=== PATIENT | male | born 1940 | race Caucasian/White ===

== ENCOUNTER → 2024-08-16 13:36 | Outpatient (REF) | payer MEDICARE, OTHER, SELFPAY | LOC: RAD 13:36 | PROVIDERS: ATTENDING PHYSICIAN Student in an Organized Health Care Education/Training Program; FAMILY PHYSICIAN Family Medicine; OTHER PHYSICIAN Internal Medicine Cardiovascular Disease | DX: I48.20 Chronic atrial fibrillation, unspecified (principal) | CPT/HCPCS: 75572; Q9967 ==

== ENCOUNTER → 2024-10-15 15:27 | Outpatient (REF) | payer MEDICARE, OTHER, SELFPAY | LOC: RAD 15:27 | PROVIDERS: ATTENDING PHYSICIAN Student in an Organized Health Care Education/Training Program; FAMILY PHYSICIAN Family Medicine | DX: I48.21 Permanent atrial fibrillation (principal) | CPT/HCPCS: 75572; Q9967 ==

== ENCOUNTER → 2024-10-21 15:02 | Outpatient (REF) | payer MEDICARE, OTHER, SELFPAY ==
[2024-10-21 15:57] LABS: INR 2.37; PT 25.9 Sec (11.4-14.6)
[2024-10-21 16:18] LABS: ALT (SGPT) 22 U/L (0-50); AST (SGOT) 26 U/L (17-59); Albumin 4.2 g/dl (3.5-5.0); Alkaline Phosphatase 73 U/L (38-126); Blood Urea Nitrogen 20 mg/dl (9-20); Calcium 9.3 mg/dl (8.4-10.2); Carbon Dioxide 27 mmol/L (22-30); Chloride 107 mmol/L (98-107); Glucose 109 mg/dl (70-99); Potassium 4.1 mmol/L (3.5-5.1); Sodium 142 mmol/L (135-145); Total Bilirubin 0.7 mg/dl (0.2-1.3); Total Protein 7.2 g/dl (6.3-8.2); eGFR > 60.00
== END ==
LOC: REG 15:02
PROVIDERS: ATTENDING PHYSICIAN Student in an Organized Health Care Education/Training Program
DX: I48.19 Other persistent atrial fibrillation (principal); I10 Essential (primary) hypertension; I63.9 Cerebral infarction, unspecified; R06.02 Shortness of breath
CPT/HCPCS: 36415; 80053; 85610

== ENCOUNTER 2025-01-22 07:28 | Day surgery (SDC) | payer MEDICARE, OTHER, SELFPAY ==
[2025-01-22 08:18] VITALS: BMI 33.1
[2025-01-22 08:32] LABS: INR 2.06; PT 23.7 Sec (11.4-14.6)
== END 2025-01-22 08:18 | disposition home or self-care (01) ==
LOC: CATH 07:28
PROVIDERS: ATTENDING PHYSICIAN Student in an Organized Health Care Education/Training Program; FAMILY PHYSICIAN Family Medicine; OTHER PHYSICIAN Internal Medicine Cardiovascular Disease
DX: I48.20 Chronic atrial fibrillation, unspecified (principal); E78.5 Hyperlipidemia, unspecified; I10 Essential (primary) hypertension; I08.3 Combined rheumatic disorders of mitral, aortic and tricuspid valves; I70.0 Atherosclerosis of aorta
CPT/HCPCS: 93312; 93325; 93320; 85610

== ENCOUNTER 2025-02-25 08:51 | Inpatient (IN) | payer MEDICARE, OTHER, SELFPAY ==
[2025-02-20 13:24] VITALS: BMI 32.1
[2025-02-20 13:32] LABS: Hematocrit 41.1 % (39.0-52.0); Hemoglobin 14.1 g/dL (13.0-18.0); Mean Corp Hgb Conc. 34.3 g/dL (33.0-37.0); Mean Corpuscular Volume 93.4 fL (80.0-94.0); Nucleated Red Blood Cells % 0 % (-); Platelet Count 216 10^3/uL (130-400); Red Cell Dist. Width 12.9 % (11.5-14.5)
[2025-02-20 13:42] LABS: INR 1.78; PT 21.2 Sec (11.4-14.6)
[2025-02-20 14:27] LABS: ALT (SGPT) 35 U/L (0-50); AST (SGOT) 29 U/L (17-59); Albumin 4.3 g/dl (3.5-5.0); Alkaline Phosphatase 84 U/L (38-126); Blood Urea Nitrogen 18 mg/dl (9-20); Calcium 9.4 mg/dl (8.4-10.2); Carbon Dioxide 30 mmol/L (22-30); Chloride 103 mmol/L (98-107); Estimated Creatinine Clearance 73 ml/min; Glucose 123 mg/dl (70-99); Potassium 4.6 mmol/L (3.5-5.1); Sodium 138 mmol/L (135-145); Total Protein 7.5 g/dl (6.3-8.2); eGFR > 60.00
[2025-02-25] VITALS (19 sets, daily range): BP systolic 117–166; BP diastolic 66–94; BMI 31.9
[2025-02-25 09:50] LABS: Glucose - Point of Care 135 mg/dl (70-99)
[2025-02-25 10:13] LABS: INR 1.10; PT 14.5 Sec (11.4-14.6)
[2025-02-25 11:49] LABS: ACT-LR - POC 240 Seconds (116-155)
[2025-02-25 11:49] LABS: ACT-LR - POC 285 Seconds (116-155)
[2025-02-25 12:04] LABS: ACT-LR - POC 255 Seconds (116-155)
[2025-02-25 12:24] LABS: ACT-LR - POC 324 Seconds (116-155)
--- NOTE | 2025-02-25 12:33 | WATCHMAN.MD ---
Watchman Implant
-
Watchman BRIANNA occlusion device implantation:
Mr. Brasher is an 84 yrs old gentleman with history of stroke and persistent atrial fibrillation status post convergent PVI. Patient was noted to have left atrial appendage clot in July 2024 for the evaluation of watchman plantation for his high
risk of bleeding. Patient's anticoagulation therapy had been switched from Eliquis to Pradaxa to warfarin without resolution of the left atrial appendage clot which was thought to be laminated. With his persistent clot and high risk of bleeding, and
inability to to resolve left leg appendage clot, patient was advised to undergo high risk watchman with deployment of [place] device for stroke prevention.
Date of Procedure:
02/25/25
Indications:
Recurrent bleeding with anticoagulation therapy for stroke prevention
Pre-Operative Diagnosis:
Atrial fibrillation with recurrent bleeding
Post-Operative Diagnosis:
Atrial fibrillation with recurrent bleeding
Procedure Performed:
Left atrial appendage occlusion with Watchman implantation (35 mm Watchman FLX Pro left atrial appendage closure device)
[place] device deployment
Performing Physicians:
JAGDISH: Christian Hightower MD.
Transseptal calender machine operator: Karla Gonzalez MD.
Implanter: Christopher Kaye MD
Anesthesia:
See anesthesia records
Detailed Description of the Procedure:
Written informed consent was obtained from the patient after a full explanation of the risks and benefits of the procedure including the risks of sedation and anesthesia.
The patient was brought to the electrophysiology laboratory in stable condition in fasting state. Continuous electrocardiographic and hemodynamic monitoring was initiated.
The initial rhythm was atrial fibrillation.
The procedure site was meticulously prepared with surgical scrub and allowed to dry with no pooling. Sterile draping was applied to cover the procedure site. The image intensifier was draped with sterile bag and positioned over the patient. After
infusion of local anesthetic, vascular access was obtained under ultrasound guidance and sheaths were placed over guide wire as detailed below.
Sheath and Catheter Placement:
In the right femoral vein, an 8-Macanese sheath was placed for Watchman placement procedure.
Sheaths:
Watchman delivery sheath upgraded from 8Fr sheath in right femoral vein
6 Macanese in right radial artery
Catheters:
Watchman catheter
[place] device sheath
[place] device deployment:
Heparin bolus was given and drip was started. ACT was confirmed to be more than 250 before starting the centerline device deployment. Heparin was initiated and infused to maintain appropriate ACT.
[place] device was deployed over the guidewire into the right radial to right carotid artery. [place] device was deployed initially deploying in the right brachiocephalic trunk artery and then engaging the left carotid artery deploying the second
basket in the left carotid artery.
Once adequate expansion of the both baskets were confirmed, patient device was locked and stored in the side.
Attention was then given for watchman implantation.
Trans-septal Puncture:
A VersaCross RF pigtail guidewire was advanced through the 8-Macanese sheath in the right femoral vein into the superior vena cava under fluoroscopic, JAGDISH guidance. The 8Fr was upgraded the Watchman sheath and was advanced into the superior vena cava
over the guide wire. A transseptal VersaCross RF pigtail via Faradrive connect system was utilized to perform the trans-septal puncture. The apparatus was withdrawn until it was in contact with the fossa ovalis. The position was adjusted based on
fluoroscopy and ultrasound images from JAGDISH. Under fluoroscopic, hemodynamic and JAGDISH ultrasound guidance, left atrium was cannulated by applying the radiofrequency energy. The right atrial and left atrial pressure was monitored. A guide wire was
placed and was advanced into the left superior pulmonary vein. Both the sheath and the dilator was advanced into the left atrium. The dilator was withdrawn. Blood was aspirated from the sheath and arterial blood confirmed. The sheath was flushed.
Saline injection noted into the left atrium on JAGDISH. The LA pressure was recorded. The saline injection was noted in the LA on the JAGDISH. A curved pig tail was advanced over the guide wire into the left atrium and the wire was removed.
Left atrial appendage atriography:
The BRIANNA was imaged and waas noted to have significant spontaneous contrast and hx of BRIANNA clot, the decision was made to record the location of the BRIANNA with fluoroscopy and JAGDISH and decision was made not to proceed with appendagography and contrast
was not injected into the BRIANNA.
The size of the BRIANNA was again checked and confirmed reviewing the JAGDISH and the fluoroscopy along with previously obtained CT scan images.
Watchman Deployment:
The Watchman delivery sheath was advanced into the BRIANNA over the guidewire till the right marker was at the location of the orifice line marked on the screen. The guidewire was removed and the Watchman delivery system was advanced through the sheath
into the BRIANNA till it was aligned with the outer sheath marker inside the BRIANNA. The watchman sheath was clicked with the outer sheath. Once acceptable location achieved, the outer sheath was pulled back keeping the device steady at the BRIANNA location
till a ball of the device was formed under fluoroscopic guidance. The whole system was advanced further into the BRIANNA till adequate depth is achieved into the BRIANNA. The BRIANNA occluder was deployed and expanded adequately anchoring to the BRIANNA. The
device was kept anchored with stable pressure to that location for 10 seconds.
The watchman needed to be recaptured and adjusted and was redeployed till the adequate expansion and occlusion of the BRIANNA noted.
The JAGDISH image confirmed adequate expansion. The tug test was done that showed the device is anchored well and is not able to come out. The compression was 15% to 28% on the three sides. There was no significant leak noted on the Doppler via JAGDISH.
The device was deployed by unscrewing the Watchman device and releasing from the connecting wire. The wire was pulled back into the sheath and the sheath was pulled out of the LA.
Implanted device:
WATCHMAN FLX Pro � 35mm
Procedure End
JAGDISH study was done again that showed no epicardial accumulation that was unchanged from earlier. A repeated images showed no change in the pericardial space. No complications noted.
Following the completion of the deployment, catheters were removed. The sheath was removed and hemostasis achieved with figure of 8 suture and manual compression after acceptable ACT is achieved.
Left atrial Pressure:
Mean LA pressure was 17mmHg
Estimated Blood loss:
10 cc
Specimens Removed:
None.
Implants / Devices:
None
Urine output:
None
Packs / Drains/ Tubes:
None
Instrument / Sponge Count Correct:
Yes
Complications of the Procedure:
None
Condition of Patient at Time of Transfer:
Hemodynamically stable with no neurological or vascular compromise.
Summary:
Successful implantation of the left atrial occlusion device (WATCHMAN FLX Pro� 35mm)
Post procedure Plan for anticoagulation:
Restart Eliquis 5 mg BID for 3 months.
Following 3 months JAGDISH, continue ASA 81 mg indefinitely.
[2025-02-25 13:39] LABS: Glucose - Point of Care 142 mg/dl (70-99)
--- NOTE | 2025-02-25 14:05 | PTCARENOTE ---
received patient from cathode maker s/p ,watchman, right radial has R band, intact, distal pulse palpable, right fem. vein figure 8 intact, dsg. D/I, distal pulse palpable. monitor shows Afib, VSS. lung dorantes clear on RA , o2 sat 96%. INT in right hand,
flushes well. oriented to room and surroundings, demonstrated how to use call guajardo.
--- NOTE | 2025-02-25 16:27 | PTCARENOTE ---
time to take R band off, started to bleed and hematoma, applied pressure and R band back on with 3cc of air. right fem. vein, figure 8 suture removed, dsg. placed, D/I.
[2025-02-25] MEDS: LOW STRENGTH ASPIRIN 81 MG PO (17:45)
--- NOTE | 2025-02-25 18:29 | PTCARENOTE ---
R band off, right groin dsg. D/I, patient sitting on side of bed eating dinner.
[2025-02-25] MEDS: ANESTHETIC LOZENGE 1 LOZENGE PO (19:49)
[2025-02-25] MEDS: ELIQUIS 5 MG PO (19:49)
[2025-02-25] MEDS: AVAPRO 150 MG PO (19:50)
[2025-02-25] MEDS: ORETIC 12.5 MG PO (19:50)
--- NOTE | 2025-02-25 19:55 | ITS.CL.PN ---
[facility] - Procedure Note
Procedure
Procedure Note:
WATCHMAN LEFT ATRIAL APPENDAGE OCCLUSION REPORT
Date of Procedure: 02/25/25
Referring: Dr. Femi Camejo MD
Indication: Atrial fibrillation with high bleeding risk and high stroke risk
Operators: Christopher Kaye MD, PhD (interventional cardiology); Dr. Karla Gonzalez MD (electrophysiology); Dr. Stef Hightower MD (cardiac imaging)
Anesthesia: general anesthesia provided by the anesthesia staff
After failure to clear left atrial appendage thrombus despite three separate anticoagulants, we had a Heart Team discussion involving the patient, referring farm mechanic, and Watchman team to discuss management options. It was felt that given the
laminated nature of the thrombus, LAAO with Watchman could be achieved with minimal procedural stroke risk. Given the significant concern for stroke risk without anticoagulation (especially in the setting of prior CVA when taken off anticoagulation)
as well as the significant risks of severe bleeding in the setting of the patient's ongoing falls with anticoagulation, we felt that LAAO despite presence of BRIANNA clot was the best option. To minimize potential of dislodgement of the BRIANNA thrombus, we
chose proceed with placement of Altha cerebral embolic protection and 'no touch' technique with no dye injection in the appendage and minimal interaction of the sheath and device with the appendage prior to deployment.
PROCEDURES:
1. angiography, cervicocerebral
2. cerebral embolic protection filter placement
3. left atrial appendage occlusion with a 35 mm Watchman FLX
ACCESS:
1. 14F right common femoral vein (closure: figure of eight stitch) - Ultrasound was utilized for vascular access. The vessel was visualized under ultrasound and noted to be patent. An image of the vessel was stored permanently in the patient's
medical record. Under direct ultrasound guidance, vascular access was obtained using a modified Seldinger technique and a 8 Welsh sheath was placed.
2. 6F right radial artery (closure: TR band) - Ultrasound was utilized for vascular access. The vessel was visualized under ultrasound and noted to be patent. An image of the vessel was stored permanently in the patient's medical record. Under
direct ultrasound guidance, vascular access was obtained using a modified Seldinger technique and a 6 Welsh sheath was placed.
PROCEDURE NARRATIVE:
The patient was intubated and sedated by anesthesiology and then prepped and draped in standard sterile fashion. A JAGDISH probe was placed by cardiology and imaging performed demonstrating known left atrial appendage thrombus and no pericardial
effusion. Under ultrasound guidance, the right femoral vein was accessed with an 8F sheath placed. Right radial access was then obtained under ultrasound guidance and a 6F sheath placed. Via the right radial access, a 6 Welsh pigtail catheter was
used to perform cervicocerebral aortography which demonstrated patent great vessels amenable to Altha placement. Heparin was administered to achieve ACT>300. The Altha cerebral embolic protection device was then placed via the right radial
artery under fluoroscopic guidance.
The 8F sheath was exchanged over a DubMeNow RF wire for the Watchman TrueSteer sheath which was advanced to the SVC. The Watchman sheath was then pulled back under fluoroscopic and echo guidance until an appropriate inferior and posterior position on
the septum was achieved. During brief RF application, the wire was advanced through the interatrial septum into the left atrium. The wire was placed in the left upper pulmonary vein as confirmed by fluoroscopy and JAGDISH. The dilator and sheath easily
tracked across the septum allowing placement of the sheath in the left atrium. Left atrial pressure was measured at 17 mmHg.
The device was prepped on the back table, the pigtail catheter removed, and the device delivered via the sheath to the left atrial appendage by Dr. Abdirahman Kaye with care taken to perform as little manipulation in the appendage as possible. The
device was deployed slowly under continuous fluoroscopic and JAGDISH visualization. After deployment, JAGDISH imaging was performed to assess PASS criteria. The device demonstrated excellent positioning, anchor stability on tug test, appropriate sizing with
15-28% compression, and appropriate seal with no leak at 0, 45, 90, or 135 degrees. Given PASS criteria were met, the device was then released.
The delivery system retracted back into the sheath and removed from the body. The sheath was retracted into the right atrium with JAGDISH demonstrating no significant R-L shunt or pericardial effusion. The Altha cerebral embolic protection device was
recaptured and removed from the radial sheath. The femoral sheath were removed and the venotomy closed with [id number] knot. The radial site was closed with a TR band. the patient was extubated and tolerated the procedure well with normal
neurologic exam immediately postprocedure.
CONCLUSIONS
1. transseptal puncture with JAGDISH guidance
2. successful deployment of a 35 mm Watchman FLX device under fluoroscopic and JAGDISH guidance with Altha cerebral embolic projection
RECOMMENDATIONS:
1. anticoagulation with apixaban 5 mg BID for 3 months
2. repeat JAGDISH in 3 months
Copy to: Dr. Femi Camejo MD (farm mechanic); Dr. Yong Gabriel DO (PCP)
Signed: Christopher Kaye MD, PhD
[2025-02-25] MEDS: TOPROL XL 50 MG PO (22:09)
[2025-02-25] MEDS: CRESTOR 5 MG PO (22:09)
--- NOTE | 2025-02-25 22:40 | PTCARENOTE ---
Received pt @ change of shift. AAOx3, VSS-- A-fib on monitor. Right radial site ecchymotic, but clean, dry, and intact. Right groin site oozing a little-- marked to compare. Soft to touch, no ecchymosis or hard spots. Pt c/o tender throat-- lozenge
given-- see MAR. Discussed change in medication to Eliquis and care plan for night/morning. Pt verbalizes understanding. Call guajardo within reach.
[2025-02-26 02:08] VITALS: BP 138/90
[2025-02-26 02:34] LABS: Hematocrit 39.5 % (39.0-52.0); Hemoglobin 13.4 g/dL (13.0-18.0); Mean Corp Hgb Conc. 33.9 g/dL (33.0-37.0); Mean Corpuscular Volume 96.8 fL (80.0-94.0); Platelet Count 183 10^3/uL (130-400); Red Cell Dist. Width 13.0 % (11.5-14.5)
[2025-02-26 02:42] LABS: INR 1.23; PT 15.8 Sec (11.4-14.6)
[2025-02-26 02:57] LABS: Blood Urea Nitrogen 21 mg/dl (9-20); Calcium 9.0 mg/dl (8.4-10.2); Carbon Dioxide 27 mmol/L (22-30); Chloride 103 mmol/L (98-107); Estimated Creatinine Clearance 73 ml/min; Glucose 126 mg/dl (70-99); Potassium 4.6 mmol/L (3.5-5.1); Sodium 134 mmol/L (135-145); eGFR > 60.00
[2025-02-26 08:17] VITALS: BP 151/81
[2025-02-26] MEDS: AVAPRO 150 MG PO (08:17)
[2025-02-26] MEDS: ORETIC 12.5 MG PO (08:17)
[2025-02-26] MEDS: ELIQUIS 5 MG PO (08:17)
--- NOTE | 2025-02-26 10:13 | PTCARENOTE ---
Pt is AOx3, no complaints of pain or discomfort. Independent OOB. Right radial and Right groin site CDI. Afib on tele monitor, VSS. Plan for discharge later this AM. Call guajardo within reach.
--- NOTE | 2025-02-26 10:18 | W.PN.CARDCBS ---
Addendum entered and electronically signed by Franck Street MD 02/26/25 10:33:
Patient seen and examined in collaboration with [facility]; agree with below.
- Patient stable status-post watchman implantation yesterday.
- Changing from warfarin/Lovenox to Eliquis 5 mg BID.
- Follow-up JAGDISH in 3 months.
- Stable for discharge to home today.
Original Note:
Today's Communication / Plan
-
post Watchman
switch warfarin/Lovenox to apixaban
f/u JAGDISH in 3 mo
home today
Impression / Plan
-
PCP: Yong Gabriel DO
CDY: Femi Camejo MD
Impression:
Atrial fibrillation multiple ablations with chronic BRIANNA thrombus
post 35mm Watchman device implant with cerebral embolic protection 02/25/25
HTN
HLD
Ambulatory dysfunction with history of fall.
Colon cancer 1996, colectomy and chemo.
Asbestos exposure.
Degenerative disc disease with spinal stenosis.
Obstructive sleep apnea, noncompliant with device.
CVA 2017, left occipital, with hemorrhagic conversion and
residual right peripheral visual deficit.
Noninsulin-dependent, diet-controlled diabetes.
Plan:
post watchman, feels good
groin stable with some ecchymosis, soft
tele Afib
He was on Warfarin with Lovenox bridge, we will switch him to Eliquis 5mg bid for then next 3mo
f/u JAGDISH in 3 mo
continue metoprolol
Activity restrictions reviewed
f/u Dr. Camejo in 2 mo
home today
Progress Note - [facility] Program Coordinator
Subjective
Date of Service: February 26, 2025
denies cp, sob
Objective
Labs:
02/26/25 02:18
02/26/25 02:18
Labs
Hgb 13.4 g/dL (13.0-18.0) 02/26/25 02:18
Hct 39.5 % (39.0-52.0) 02/26/25 02:18
Plt Count 183 10^3/uL (130-400) 02/26/25 02:18
PT 15.8 Sec (11.4-14.6) H 02/26/25 02:18
INR 1.23 02/26/25 02:18
Sodium 134 mmol/L (135-145) L 02/26/25 02:18
Potassium 4.6 mmol/L (3.5-5.1) 02/26/25 02:18
BUN 21 mg/dl (9-20) H 02/26/25 02:18
Creatinine 0.9 mg/dL (0.7-1.3) 02/26/25 02:18
Glucose 126 mg/dl (70-99) H 02/26/25 02:18
Vital Signs and I&O:
Vital Signs
Temp Pulse Resp BP Pulse Ox
97.7 F 65 20 151/81 98
02/26/25 08:09 02/26/25 08:17 02/26/25 08:09 02/26/25 08:17 02/26/25 08:09
Vital Signs
Temp Pulse Resp BP Pulse Ox
97.7 F 65 20 151/81 98
02/26/25 08:09 02/26/25 08:17 02/26/25 08:09 02/26/25 08:17 02/26/25 08:09
Intake & Output
02/24/25 02/25/25 02/26/25 02/27/25
06:59 06:59 06:59 06:59
Intake Total 1080 / 1080
Output Total 600 / 600
Balance 480 / 480
Physical Exam
Physical Exam
NAD< AOX3
S1, S2, irreg irreg 1/ JOSE
CTAB, non labored, no wheeze
SNTND Bsx4
R fem site old marked drainage, mod ecchymosis, soft, no HT
[2025-02-26 11:08] VITALS: BP 129/66
--- NOTE | 2025-02-26 11:38 | CM ---
Chart reviewed. Patient is independent of ADLS, lives with his in a 2 [address], 1-2 SHAIN, 0 DME. Plan is for the patient to return home.
--- NOTE | 2025-02-26 12:53 | W.DS.TRANS ---
DC Summary - Inspector Process
-
Discharge Instructions:
Discharge Diagnosis/Procedures Watchman device implant
Diet Low Cholesterol
Driving Restrictions No driving for 24 hours
Others Tests 3 month follow up JAGDISH is scheduled for 05/28/2025.
You will receive instructions in the mail. The
day before your JAGDISH you will receive a call with
your arrival time.
Instructions:
Stand-Alone Forms: DC Instructions- Cath/EP Lab
Changes to Home Medications: Yes
Discharge Medications:
DC Medications w/original date entered in [facility]
Prevagen 1 tab PO DAILY 01/22/25
aspirin 81 mg capsule 81 mg PO QPM 01/22/25
coffee extract 100 mg-phosphatidyl serine 100 mg capsule (Neuriva Original) 1 cap PO DAILY 01/22/25
metoprolol succinate 50 mg tablet,extended release 24 hr 50 mg PO HS 01/22/25
oxymetazoline 0.05 % nasal spray (Afrin (oxymetazoline)) 1 spray intranasal DAILY PRN congestion 01/22/25
rosuvastatin 5 mg tablet 5 mg PO HS 01/22/25
temazepam 30 mg capsule 30 mg PO HS PRN sleep 01/22/25
Instaflex 1 tab PO DAILY 02/18/25
ascorbic acid (vitamin C) 250 mg tablet (Vitamin C) 250 mg PO DAILY 02/18/25
coQ10 (ubiquinol) 100 mg capsule 100 mg PO DAILY 02/18/25
multivitamin 1 tab PO DAILY 02/18/25
omega 9-roa-eaf-fish oil 1,000 mg (120 mg-180 mg) capsule (Fish Oil) 1 cap PO DAILY 02/18/25
saw palmetto 500 mg capsule 500 mg PO DAILY 02/18/25
vitamin E (dl, acetate) 450 mg (1,000 unit) capsule 450 mg PO DAILY 02/18/25
fexofenadine 180 mg tablet (Nikki Allergy) 180 mg PO DAILY 02/25/25
apixaban 5 mg tablet (Eliquis) 5 mg PO BID #60 tabs 02/26/25
irbesartan 150 mg-hydrochlorothiazide 12.5 mg tablet 1 tab PO DAILY #0 tabs 02/26/25
Home Medication Changes
stopped warfarin and lovenox, new to eliquis
Pending Results: No
== END 2025-02-26 11:56 | disposition home or self-care (01) | DRG 274 ==
LOC: IVU 08:51
PROVIDERS: Nurse Practitioner; ADMITTING PHYSICIAN Student in an Organized Health Care Education/Training Program; FAMILY PHYSICIAN Family Medicine
PROC: B24BZZ4 Ultrasonography of Heart with Aorta, Transesophageal (ICD-10-PCS; 2025-02-25)
PROC: 02L73DK Occlusion of Left Atrial Appendage with Intraluminal Device, Percutaneous Approach (ICD-10-PCS; 2025-02-25)
DX: I48.21 Permanent atrial fibrillation (principal); Z00.6 Encounter for examination for normal comparison and control in clinical research program; I51.3 Intracardiac thrombosis, not elsewhere classified; I10 Essential (primary) hypertension; E78.5 Hyperlipidemia, unspecified; Z79.01 Long term (current) use of anticoagulants; Z79.82 Long term (current) use of aspirin; Z85.038 Personal history of other malignant neoplasm of large intestine; Z87.891 Personal history of nicotine dependence; Z91.199 Patient's noncompliance with other medical treatment and regimen due to unspecified reason; I69.398 Other sequelae of cerebral infarction; R26.89 Other abnormalities of gait and mobility
CPT/HCPCS: 33340; 36415; 80048; 80053; 82962; 85025; 85027; 85347; 85610; 86850; 86900; 86901; 93005; 93355; C1769; C1894